=== PATIENT | female | born 1975 | race Hispanic/Latino ===

== ENCOUNTER 2018-07-26 22:23 | Emergency (ER) | payer OTHER, SELFPAY | END 2018-07-27 01:24 | disposition home or self-care (01) | LOC: ERS 22:23 | DX: J02.9 Acute pharyngitis, unspecified (principal); E78.5 Hyperlipidemia, unspecified; I10 Essential (primary) hypertension; F32.9 Major depressive disorder, single episode, unspecified; F17.210 Nicotine dependence, cigarettes, uncomplicated; K21.9 Gastro-esophageal reflux disease without esophagitis | CPT/HCPCS: 87081; 87430; 87804; 99283 ==

== ENCOUNTER 2020-11-26 12:20 | Emergency (ER) | payer SELFPAY ==
[2020-11-26] MEDS ORDERED: Proparacaine 0.5% Opth 15 ML BOT ONE (13:27)
[2020-11-26] MEDS ORDERED: Fluorescein Opthalmic Strip ONE (13:27)
== END 2020-11-26 14:20 | disposition home or self-care (01) ==
LOC: ERS 12:20
DX: S05.01XA Injury of conjunctiva and corneal abrasion without foreign body, right eye, initial encounter (principal); W22.8XXA Striking against or struck by other objects, initial encounter; E78.5 Hyperlipidemia, unspecified; E78.00 Pure hypercholesterolemia, unspecified; I10 Essential (primary) hypertension; K21.9 Gastro-esophageal reflux disease without esophagitis; F17.210 Nicotine dependence, cigarettes, uncomplicated
CPT/HCPCS: 99283

== ENCOUNTER 2021-06-07 18:24 | Emergency (ER) | payer SELFPAY ==
[~2021-06-07 18:24] MED LIST: Iopamidol-370 76% 500 ML 1 ML ONE
[2021-06-07 19:14] LABS: #Basophils 0.1 thou/uL (0.0-0.2); #Eosinphils 0.3 thou/uL (0.0-0.7); #Lymphocytes 2.7 thou/uL (1.20-3.40); #Monocytes 0.5 thou/uL (0.11-0.59); #Neutrophils 5.9 thou/uL (1.40-6.50); %Basophils 0.7 % (0.0-1.0); %Eosinophils 3.2 % (0.0-10.0); %Lymphocytes 28.9 % (21.0-51.0); %Monocytes 4.9 % (0.0-10.0); %Neutrophils 62.3 % (42.0-75.0); Hemoglobin 12.8 g/dL (12.0-16.0); Mean Corpuscular Volume 84.8 fL (78.0-98.0); Mean Platelet Volume 7.5 fL (7.4-10.4); Platelet Count 330 thou/uL (130-400); Red Blood Cell (RBC) Count 4.56 mill/uL (4.20-5.40); White Blood Cell (WBC) Count 9.4 thou/uL (4.8-10.8)
[2021-06-07] MEDS ORDERED: Morphine 4 MG/ML VIAL ONE (19:22)
[2021-06-07] MEDS ORDERED: Ondansetron PF 4 MG/2 ML Vial ONE (19:22)
[2021-06-07 19:44] LABS: BHCG - Serum Negative (NEGATIVE); Pregs Control Background? CLEAR/WHITE (CLR/WHITE); Pregs Control Bar Appear? YES (CONTROL BAR)
[2021-06-07 19:47] LABS: ALT (SGPT) 18 U/L (8-55); AST (SGOT) 28 U/L (5-34); Albumin 3.9 g/dL (3.5-5.0); Alkaline Phosphatase 75 U/L (40-110); Anion Gap 16 mmol/L (10-20); BUN (Urea Nitrogen) 15 mg/dL (7.0-18.7); Bilirubin, Total 0.2 mg/dL (0.2-1.2); Calc. Creatinine Clearance 0 mL/min (70-130); Calcium 9.4 mg/dL (7.8-10.44); Carbon Dioxide 19 mmol/L (22-29); Chloride 108 mmol/L (98-107); Globulin 3.8 g/dL (2.4-3.5); Glucose 101 mg/dL (70-105); Potassium 4.7 mmol/L (3.5-5.1); Protein, Total 7.7 g/dL (6.0-8.3); Sodium 138 mmol/L (136-145)
[2021-06-07 19:49] LABS: CK (CPK) 71 U/L (29-168); Lipase 50 U/L (8-78); Magnesium 2.2 mg/dL (1.6-2.6)
[2021-06-07 20:10] LABS: Thyroid Stimulating Hormone 1.3904 uIU/mL (0.35-4.94)
[2021-06-07] MEDS ORDERED: Lidocaine Viscous Sol 2% 15 ml UD Cup ONE (21:55)
[2021-06-07] MEDS ORDERED: Mag-Al 1200 mg/1200 mg/30 ML UDCUP ONE (21:56)
== END 2021-06-07 21:45 | disposition home or self-care (01) ==
LOC: ERS 18:24
DX: R13.10 Dysphagia, unspecified (principal); R07.89 Other chest pain; E78.5 Hyperlipidemia, unspecified; E78.00 Pure hypercholesterolemia, unspecified; I10 Essential (primary) hypertension; K21.9 Gastro-esophageal reflux disease without esophagitis; F17.210 Nicotine dependence, cigarettes, uncomplicated
CPT/HCPCS: 70450; 71275; 80053; 82550; 83690; 83735; 84443; 84484; 84703; 85025; 93005; 94760; 96374; 96375; J2270; J2405; Q9967

== ENCOUNTER 2021-07-22 20:32 | Emergency (ER) | payer SELFPAY | END 2021-07-23 00:01 | disposition home or self-care (01) | LOC: ERS 20:32 | DX: S93.402A Sprain of unspecified ligament of left ankle, initial encounter (principal); E78.00 Pure hypercholesterolemia, unspecified; E78.5 Hyperlipidemia, unspecified; I10 Essential (primary) hypertension; F17.210 Nicotine dependence, cigarettes, uncomplicated ==

== ENCOUNTER 2021-09-16 16:55 | Emergency (ER) | payer OTHER, SELFPAY ==
[2021-09-16] MEDS ORDERED: Boostrix 0.5 ML (Tdap) VIAL ONE ×2 (18:39→18:44)
[2021-09-16] MEDS ORDERED: Lidocaine 1% PF 5 ML VIAL ONE ×2 (20:09→20:32)
[2021-09-16] MEDS ORDERED: Rabies Vaccine Human 2.5 UNITS VIAL IM ONE (21:00)
== END 2021-09-16 22:15 | disposition home or self-care (01) ==
LOC: ERS 16:55
DX: S01.411A Laceration without foreign body of right cheek and temporomandibular area, initial encounter (principal); I10 Essential (primary) hypertension; E78.5 Hyperlipidemia, unspecified; E78.00 Pure hypercholesterolemia, unspecified; F17.210 Nicotine dependence, cigarettes, uncomplicated; K21.9 Gastro-esophageal reflux disease without esophagitis; W54.0XXA Bitten by dog, initial encounter; Z23 Encounter for immunization
CPT/HCPCS: 90376; 90471; 90472; 90675; 90715; 96372

== ENCOUNTER 2022-02-04 02:20 | Emergency (ER) | payer SELFPAY ==
[2022-02-04] MEDS ORDERED: Ibuprofen 800 MG TAB ONE (04:45)
== END 2022-02-04 04:43 | disposition home or self-care (01) ==
LOC: ERS 02:20
DX: M79.10 Myalgia, unspecified site (principal); Z20.822 Contact with and (suspected) exposure to COVID-19; I10 Essential (primary) hypertension; F17.210 Nicotine dependence, cigarettes, uncomplicated
CPT/HCPCS: 87804; 99283; U0003; U0005

== ENCOUNTER 2022-06-21 04:58 | Emergency (ER) | payer SELFPAY ==
[2022-06-21] MEDS ORDERED: Ketorolac Tromethamine 30 MG/ML VIAL ONE (05:35)
== END 2022-06-21 06:20 | disposition home or self-care (01) ==
LOC: ERS 04:58
DX: M54.32 Sciatica, left side (principal); E78.00 Pure hypercholesterolemia, unspecified; K21.9 Gastro-esophageal reflux disease without esophagitis; I10 Essential (primary) hypertension; F17.210 Nicotine dependence, cigarettes, uncomplicated
CPT/HCPCS: 96372; J1885